=== PATIENT | female | born 1965 | race Caucasian/White ===

== ENCOUNTER → 2017-09-08 17:11 | Outpatient (CLI) | payer OTHER | END | disposition home or self-care (01) | LOC: D.MAMMO 08-20 10:15 | DX: Z12.31 Encounter for screening mammogram for malignant neoplasm of breast (principal) ==

== ENCOUNTER 2018-04-28 12:01 | Day surgery (SDC) | payer OTHER ==
[~2018-04-28] VITALS: Ht 160 cm; Wt 90.9 kg
--- NOTE | ~2018-04-28 | OP ---
PATIENT NAME: YESIAC CHARLES MEDICAL RECORD: [id number] :69 LOCATION:[facility] ADMISSION DATE: SURGEON: CATHY HERNANDEZ MD DATE OF OPERATION: 04/28/2018 PROCEDURE: Colonoscopy with polypectomy. MARKETING PRODUCTION SPECIALIST: Cathy Hernandez MD SCOPE: Olympus video colonoscope. MEDICATIONS: Per TIVA anesthesia. The patient received 400 mg of propofol IV push throughout the procedure and O2 at 4 liters. INDICATION FOR THE PROCEDURE: Screening test. History of polyps in the past. Last colonoscopy 7 years ago. Family history negative for colon cancer. FINDINGS: Informed consent was given. The patient was made comfortable with the above medication. After reaching an adequate level of sedation by slow IV push, the patient was placed on her left side. The rectal exam revealed good sphincter tone. No fissures or fistulas were appreciated. No external skin tags were seen. The colonoscope was advanced to the cecum, where ileocecal valve and appendiceal orifice were identified. The small bowel was intubated and tissue was normal. On withdrawal of the scope, mucosa was carefully inspected. The patient did have some adhesions due to previous abdominal surgeries. These were located in the pelvic area. Very mild left-sided diverticulosis coli without diverticulitis was appreciated. With advancement of the scope to the rectum, one small benign-appearing 0.5-cm polyp was seen and removed with hot biopsy forceps technique. On retroflexion, very mild internal hemorrhoids were noted. On final withdrawal of the scope, external hemorrhoids, which were also very mild, were seen. IMPRESSION: 1. Adhesions adding to the difficulty of this procedure. 2. Normal cecum, normal appendiceal orifice, and normal ileocecal valve. 3. Very mild left-sided diverticulosis coli without diverticulitis. 4. Removal of one benign-appearing rectal polyp, 0.5 cm in size, removed with hot biopsy forceps technique. 5. Internal hemorrhoids. 6. Very mild external hemorrhoids. PLAN: 1. No aspirin and no anti-inflammatory drugs for 14 days. 2. High-fiber diet. 3. Return to clinic on a p.r.n. basis. TRANSINT:[id number] Voice Confirmation ID: [id number] DOCUMENT ID: [id number] OPERATIVE REPORT [id number] ARACELIYESICA CONKLINCATHY LYLE MD at 1215 CC: [id number] DICTATION DATE: 04/28/18 1436 FOREIGN STUDENT ADVISER: 04/28/18 1729 [facility] 04/28/[address] [address]
[2018-04-28 13:25] LABS: HCG URINE NEGATIVE (NEGATIVE)
[2018-04-28] MEDS ORDERED: AMBIEN10 MG PO (13:31)
[2018-04-28 13:38] VITALS: BP 152/77; Ht 160 cm; Wt 90.9 kg
[2018-04-28 13:42] LABS: HEMATOCRIT 47.5 % (36.0-48.0); HEMOGLOBIN 15.7 g/dL (12-16); MCH 30.7 pg (26.0-34.0); MCHC 33.1 g/dL (31.0-37.0); MCV 92.8 fL (80.0-100.0); MEAN PLATELET VOLUME 11.2 fL (7.4-10.4); RBC 5.12 10x6/uL (4.00-5.40); RDW 14.5 % (11.5-14.5); WBC 6.6 10x3/uL (4.8-10.8)
[2018-04-28 14:10] LABS: CALC OSMOLALITY 284 mosm/kg (275-300); CALCIUM 9.4 mg/dL (8.5-10.1); CARBON DIOXIDE 28.2 mmol/L (21.0-32.0); CHLORIDE - SERUM 104 mmol/L (98-107); CREATININE - SERUM 0.7 mg/dL (0.6-1.3); GLUCOSE 88 mg/dL (74-106); POTASSIUM - SERUM 3.8 mmol/L (3.5-5.1); SODIUM 144 mmol/L (136-145); UREA NITROGEN 9 mg/dL (7-18); eGFR NON AFRICAN AMERICAN > 90 mL/min (90-120)
== END 2018-04-28 16:00 | disposition home or self-care (01) ==
LOC: D.OPS 12:01
PROVIDERS: Anesthesiology; Internal Medicine Gastroenterology
DX: K63.5 Polyp of colon (principal); K57.90 Diverticulosis of intestine, part unspecified, without perforation or abscess without bleeding; K64.8 Other hemorrhoids

== ENCOUNTER → 2018-10-06 17:05 | Outpatient (CLI) | payer OTHER ==
[2018-04-28 13:38] VITALS: BMI 35.5
[~2018-10-06 17:05] MED LIST: AMBIEN10 MG PO
== END | disposition home or self-care (01) ==
LOC: D.MAMMO 11:15
DX: Z12.31 Encounter for screening mammogram for malignant neoplasm of breast (principal)